=== PATIENT | female | born 1950 | race Caucasian/White ===

== ENCOUNTER → 2017-12-02 | Outpatient (REF) | payer BC, MEDICARE, SELFPAY ==
[2017-12-02 15:57] LABS: BASO # 0.1 10^3/uL (0.0-0.2); EOS # 0.2 10^3/uL (0.0-0.50); EOS % 3.3 % (0.0-3.0); HEMOGLOBIN 14.6 g/dl (12.0-16.0); IMMATURE GRANULOCYTE % 0.3 % (0-0); LYMPH # 1.8 10^3/uL (1.5-4.5); LYMPH % 25.1 % (24.0-44.0); MEAN CORPUSCULAR HEMOGLOBIN 29.1 pg (27.0-33.0); MEAN CORPUSCULAR HGB CONC 32.4 g/dl (32.0-36.5); MEAN CORPUSCULAR VOLUME 89.6 fl (80.0-96.0); MONO # 0.5 10^3/uL (0.0-0.8); NEUTROPHILS # 4.6 10^3/uL (1.8-7.7); NEUTROPHILS % 63.3 % (36.0-66.0); PLATELET COUNT, AUTOMATED 164 10^3/uL (150-450); RED BLOOD COUNT 5.02 10^6/uL (4.00-5.40); RED CELL DISTRIBUTION WIDTH 13.4 % (11.5-14.5); WHITE BLOOD COUNT 7.2 10^3/uL (4.0-10.0)
[2017-12-02 16:17] LABS: TOTAL 25(OH) VITAMIN D 13.5 NG/ML (30.0-100.0)
[2017-12-02 16:18] LABS: ALBUMIN 3.7 GM/DL (3.2-5.2); ALBUMIN/GLOBULIN RATIO 1.03 (1.00-1.93); ALKALINE PHOSPHATASE 160 U/L (45-117); ALT/SGPT 29 U/L (12-78); ANION GAP 7 MEQ/L (8-16); AST/SGOT 17 U/L (7-37); BILIRUBIN,TOTAL 0.5 MG/DL (0.2-1.0); BLOOD UREA NITROGEN 17 MG/DL (7-18); CALCIUM LEVEL 9.8 MG/DL (8.8-10.2); CARBON DIOXIDE LEVEL 28 MEQ/L (21-32); CHLORIDE LEVEL 105 MEQ/L (98-107); CREATININE FOR GFR 0.67 MG/DL (0.55-1.30); GLOMERULAR FILTRATION RATE > 60.0 (>45); GLUCOSE, FASTING 91 MG/DL (70-100); POTASSIUM SERUM 4.4 MEQ/L (3.5-5.1); SODIUM LEVEL 140 MEQ/L (136-145); TOTAL PROTEIN 7.3 GM/DL (6.4-8.2)
[2017-12-02 16:20] LABS: ERYTHROCYTE SEDIMENTATION RATE 31 mm/hr (0-30)
[2017-12-05 00:08] LABS: Lyme Disease IgG/IgM Antibodie <0.91 ISR (0.00-0.90); Lyme Disease IgM Ab Quantitati <0.80 index (0.00-0.79)
== END ==
LOC: M LABDRAW1 11:04
DX: E55.9 Vitamin D deficiency, unspecified (principal); M17.0 Bilateral primary osteoarthritis of knee; M50.322 Other cervical disc degeneration at C5-C6 level; M75.51 Bursitis of right shoulder
CPT/HCPCS: 80053

== ENCOUNTER → 2018-01-05 | Outpatient (CLI) | payer MEDICARE | LOC: M WHC 07:56 | DX: M85.89 Other specified disorders of bone density and structure, multiple sites (principal) | CPT/HCPCS: 77080 ==

== ENCOUNTER → 2019-11-24 | Outpatient (CLI) | payer MEDICARE ==
[2019-11-27 09:11] LABS: D001-IgE D pteronyssinus <0.10 kU/L (Class 0); E001-IgE Cat Epith/Dander < 0.10 kU/L (Class 0); E003-IGE HORSE EPITHELIA/DAND <0.10 kU/L (Class 0); E004-IGE COW DANDER <0.10 kU/L (Class 0); E005-IgE Dog Dander < 0.10 kU/L (Class 0); F002-IgE Milk < 0.10 kU/L (Class 0); F004-IgE Wheat < 0.10 kU/L (Class 0); F013-IgE Peanut < 0.10 kU/L (Class 0); F014-IgE Soybean < 0.10 kU/L (Class 0); F026-IgE Pork < 0.10 kU/L (Class 0); F027-IgE Beef < 0.10 kU/L (Class 0); F245-IgE Egg, Whole < 0.10 kU/L (Class 0); FX02-IgE Food Mix (Sea Foods) Negative (.); G002-IgE Bermuda Grass < 0.10 kU/L (Class 0); G008-IgE Kentucky Bluegrass < 0.10 kU/L (Class 0); M001-IgE Penicillium chrysogen < 0.10 kU/L (Class 0); M002 IgE Cladosporium herbaru < 0.10 kU/L (Class 0); M003 IgE Aspergillus fumigatu < 0.10 kU/L (Class 0); M006-IgE Alternaria alternata < 0.10 kU/L (Class 0); T001-IgE Maple/Box Elder < 0.10 kU/L (Class 0); T003-IgE Common Silver Birch < 0.10 kU/L (Class 0); T006-IgE Cedar, Mountain < 0.10 kU/L (Class 0); T007-IgE Oak, White < 0.10 kU/L (Class 0); T008-IgE Elm, American < 0.10 kU/L (Class 0); T015-IgE Ash, White < 0.10 kU/L (Class 0); T041-IgE Hickory, White < 0.10 kU/L (Class 0); T070-IgE White Mulberry < 0.10 kU/L (Class 0); W001-IgE Ragweed, Short < 0.10 kU/L (Class 0); W009-IgE Plantain, English < 0.10 kU/L (Class 0); W014-IgE Pigweed, Rough < 0.10 kU/L (Class 0); W018-IgE Sheep Sorrel < 0.10 kU/L (Class 0)
== END ==
LOC: M LAB 07:49
PROVIDERS: ATTEND Allergy & Immunology
DX: J30.1 Allergic rhinitis due to pollen (principal); J30.81 Allergic rhinitis due to animal (cat) (dog) hair and dander; J30.89 Other allergic rhinitis

== ENCOUNTER → 2020-03-16 | Outpatient (CLI) | payer MEDICARE ==
[2020-03-16 07:12] LABS: HEMATOCRIT 41.3 % (36.0-47.0); HEMOGLOBIN 13.5 g/dl (12.0-15.5); MEAN CORPUSCULAR HEMOGLOBIN 29.9 pg (27.0-33.0); MEAN CORPUSCULAR HGB CONC 32.7 g/dl (32.0-36.5); MEAN CORPUSCULAR VOLUME 91.6 fl (80.0-96.0); PLATELET COUNT, AUTOMATED 162 10^3/uL (150-450); RED BLOOD COUNT 4.51 10^6/uL (4.00-5.40); WHITE BLOOD COUNT 7.2 10^3/uL (4.0-10.0)
[2020-03-16 07:28] LABS: HEMOGLOBIN A1c 5.7 %
[2020-03-16 07:39] LABS: ALBUMIN 3.2 GM/DL (3.2-5.2); ALT/SGPT 24 U/L (12-78); BILIRUBIN,TOTAL 0.6 MG/DL (0.2-1.0); BLOOD UREA NITROGEN 16 MG/DL (7-18); CALCIUM LEVEL 9.4 MG/DL (8.8-10.2); CARBON DIOXIDE LEVEL 26 MEQ/L (21-32); CHLORIDE LEVEL 108 MEQ/L (98-107); CHOLESTEROL LEVEL 130 MG/DL (<200); CREATININE FOR GFR 0.62 MG/DL (0.55-1.30); GLOMERULAR FILTRATION RATE > 60.0 (>45); GLUCOSE, FASTING 103 MG/DL (70-100); HDL CHOLESTEROL 52 MG/DL (>40); LDL CHOLESTEROL 56 MG/DL (<100); NON-HDL-C 78 MG/DL; POTASSIUM SERUM 4.1 MEQ/L (3.5-5.1); SODIUM LEVEL 143 MEQ/L (136-145); THYROID STIMULATING HORMONE 0.696 uIU/ML (0.358-3.740); TOTAL PROTEIN 6.7 GM/DL (6.4-8.2); TRIGLYCERIDES LEVEL 112 MG/DL (<150)
[2020-03-16 10:10] LABS: TOTAL 25(OH) VITAMIN D 13.4 NG/ML (30.0-100.0)
== END ==
LOC: M LAB 06:25
PROVIDERS: ATTEND Family Medicine
DX: I10 Essential (primary) hypertension (principal); E11.9 Type 2 diabetes mellitus without complications; E03.9 Hypothyroidism, unspecified; Z79.899 Other long term (current) drug therapy

== ENCOUNTER → 2020-10-22 | Outpatient (CLI) | payer MEDICARE ==
[2020-10-22 08:12] LABS: HEMATOCRIT 44.8 % (36.0-47.0); HEMOGLOBIN 14.2 g/dl (12.0-15.5); MEAN CORPUSCULAR HEMOGLOBIN 29.5 pg (27.0-33.0); MEAN CORPUSCULAR HGB CONC 31.7 g/dl (32.0-36.5); MEAN CORPUSCULAR VOLUME 92.9 fl (80.0-96.0); PLATELET COUNT, AUTOMATED 182 10^3/uL (150-450); RED BLOOD COUNT 4.82 10^6/uL (4.00-5.40)
[2020-10-22 08:46] LABS: ALBUMIN 3.4 GM/DL (3.2-5.2); ALT/SGPT 31 U/L (12-78); BILIRUBIN,TOTAL 0.6 MG/DL (0.2-1.0); BLOOD UREA NITROGEN 16 MG/DL (7-18); CALCIUM LEVEL 9.6 MG/DL (8.8-10.2); CARBON DIOXIDE LEVEL 28 MEQ/L (21-32); CHLORIDE LEVEL 107 MEQ/L (98-107); CHOLESTEROL LEVEL 141 MG/DL (<200); CHOLESTEROL RISK RATIO 2.764 (<5); CREATININE FOR GFR 0.51 MG/DL (0.55-1.30); GLOMERULAR FILTRATION RATE > 60.0 (>45); GLUCOSE, FASTING 104 MG/DL (70-100); HDL CHOLESTEROL 51 MG/DL (>40); LDL CHOLESTEROL 72 MG/DL (<100); NON-HDL-C 90 MG/DL; SODIUM LEVEL 140 MEQ/L (136-145); THYROID STIMULATING HORMONE 0.792 uIU/ML (0.358-3.740); TOTAL PROTEIN 6.7 GM/DL (6.4-8.2); TRIGLYCERIDES LEVEL 92 MG/DL (<150)
[2020-10-22 10:40] LABS: HEMOGLOBIN A1c 5.6 %
[2020-10-22 13:41] LABS: TOTAL 25(OH) VITAMIN D 21.9 NG/ML (30.0-100.0)
== END ==
LOC: M LAB 07:27
PROVIDERS: ATTEND Family Medicine
DX: E03.9 Hypothyroidism, unspecified (principal); I10 Essential (primary) hypertension; E11.9 Type 2 diabetes mellitus without complications; R53.83 Other fatigue

== ENCOUNTER → 2020-12-27 | Outpatient (CLI) | payer MEDICARE ==
[2020-12-27 08:09] LABS: HEMOGLOBIN 13.7 g/dl (12.0-15.5); MEAN CORPUSCULAR HEMOGLOBIN 29.5 pg (27.0-33.0); MEAN CORPUSCULAR HGB CONC 31.9 g/dl (32.0-36.5); MEAN CORPUSCULAR VOLUME 92.5 fl (80.0-96.0); PLATELET COUNT, AUTOMATED 174 10^3/uL (150-450); RED BLOOD COUNT 4.65 10^6/uL (4.00-5.40); WHITE BLOOD COUNT 7.6 10^3/uL (4.0-10.0)
[2020-12-27 08:49] LABS: ALBUMIN 3.5 GM/DL (3.2-5.2); ALT/SGPT 30 U/L (12-78); BILIRUBIN,TOTAL 0.5 MG/DL (0.2-1.0); BLOOD UREA NITROGEN 23 MG/DL (7-18); CALCIUM LEVEL 9.8 MG/DL (8.8-10.2); CARBON DIOXIDE LEVEL 28 MEQ/L (21-32); CHLORIDE LEVEL 108 MEQ/L (98-107); CHOLESTEROL LEVEL 138 MG/DL (<200); CHOLESTEROL RISK RATIO 2.603 (<5); CREATININE FOR GFR 0.66 MG/DL (0.55-1.30); GLOMERULAR FILTRATION RATE > 60.0 (>45); GLUCOSE, FASTING 101 MG/DL (70-100); HDL CHOLESTEROL 53 MG/DL (>40); LDL CHOLESTEROL 69 MG/DL (<100); NON-HDL-C 85 MG/DL; POTASSIUM SERUM 4.3 MEQ/L (3.5-5.1); SODIUM LEVEL 141 MEQ/L (136-145); THYROID STIMULATING HORMONE 0.666 uIU/ML (0.358-3.740); TOTAL PROTEIN 6.8 GM/DL (6.4-8.2); TRIGLYCERIDES LEVEL 81 MG/DL (<150)
[2020-12-27 09:09] LABS: TOTAL 25(OH) VITAMIN D 19.5 NG/ML (30.0-100.0)
[2020-12-27 09:17] LABS: HEMOGLOBIN A1c 5.4 %
== END ==
LOC: M LAB 07:15
PROVIDERS: ATTEND Family Medicine
DX: E03.9 Hypothyroidism, unspecified (principal); I10 Essential (primary) hypertension; E11.9 Type 2 diabetes mellitus without complications

== ENCOUNTER → 2021-06-25 | Outpatient (REF) | payer MEDICARE | LOC: M LAB REF 12:32 | PROVIDERS: ATTEND Nurse Practitioner Family | DX: E83.42 Hypomagnesemia (principal) ==

== ENCOUNTER → 2021-08-08 | Outpatient (CLI) | payer MEDICARE ==
[2021-08-08 08:55] LABS: HEMATOCRIT 43.3 % (36.0-47.0); MEAN CORPUSCULAR HEMOGLOBIN 29.9 pg (27.0-33.0); MEAN CORPUSCULAR HGB CONC 32.3 g/dl (32.0-36.5); MEAN CORPUSCULAR VOLUME 92.3 fl (80.0-96.0); PLATELET COUNT, AUTOMATED 181 10^3/uL (150-450); RED BLOOD COUNT 4.69 10^6/uL (4.00-5.40); WHITE BLOOD COUNT 6.2 10^3/uL (4.0-10.0)
[2021-08-08 09:10] LABS: HEMOGLOBIN A1c 5.3 %
[2021-08-08 09:29] LABS: ALBUMIN 3.2 GM/DL (3.2-5.2); ALT/SGPT 24 U/L (12-78); BILIRUBIN,TOTAL 0.6 MG/DL (0.2-1.0); BLOOD UREA NITROGEN 17 MG/DL (7-18); CALCIUM LEVEL 10.1 MG/DL (8.8-10.2); CARBON DIOXIDE LEVEL 28 MEQ/L (21-32); CHLORIDE LEVEL 109 MEQ/L (98-107); CHOLESTEROL LEVEL 148 MG/DL (<200); CHOLESTEROL RISK RATIO 2.642 (<5); CREATININE FOR GFR 0.61 MG/DL (0.55-1.30); GLOMERULAR FILTRATION RATE > 60.0 (>45); GLUCOSE, FASTING 102 MG/DL (70-100); HDL CHOLESTEROL 56 MG/DL (>40); LDL CHOLESTEROL 71 MG/DL (<100); NON-HDL-C 92 MG/DL; POTASSIUM SERUM 4.1 MEQ/L (3.5-5.1); SODIUM LEVEL 141 MEQ/L (136-145); THYROID STIMULATING HORMONE 0.397 uIU/ML (0.358-3.740); TOTAL PROTEIN 6.6 GM/DL (6.4-8.2); TRIGLYCERIDES LEVEL 105 MG/DL (<150)
[2021-08-08 10:38] LABS: TOTAL 25(OH) VITAMIN D 57.4 NG/ML (30.0-100.0)
== END ==
LOC: M LAB 08:04
PROVIDERS: ATTEND Family Medicine
DX: I10 Essential (primary) hypertension (principal); E11.9 Type 2 diabetes mellitus without complications; R53.83 Other fatigue

== ENCOUNTER → 2021-11-28 | Outpatient (CLI) | payer MEDICARE ==
[2021-11-28 08:49] LABS: HEMATOCRIT 44.7 % (36.0-47.0); HEMOGLOBIN 14.4 g/dl (12.0-15.5); MEAN CORPUSCULAR HEMOGLOBIN 29.8 pg (27.0-33.0); MEAN CORPUSCULAR HGB CONC 32.2 g/dl (32.0-36.5); MEAN CORPUSCULAR VOLUME 92.4 fl (80.0-96.0); PLATELET COUNT, AUTOMATED 177 10^3/uL (150-450); RED BLOOD COUNT 4.84 10^6/uL (4.00-5.40); WHITE BLOOD COUNT 6.5 10^3/uL (4.0-10.0)
[2021-11-28 09:29] LABS: ALBUMIN 3.2 GM/DL (3.2-5.2); ALT/SGPT 22 U/L (12-78); BILIRUBIN,TOTAL 0.6 MG/DL (0.2-1.0); BLOOD UREA NITROGEN 17 MG/DL (7-18); CALCIUM LEVEL 9.9 MG/DL (8.8-10.2); CARBON DIOXIDE LEVEL 29 MEQ/L (21-32); CHLORIDE LEVEL 107 MEQ/L (98-107); CHOLESTEROL LEVEL 142 MG/DL (<200); CHOLESTEROL RISK RATIO 2.629 (<5); CREATININE FOR GFR 0.65 MG/DL (0.55-1.30); GLOMERULAR FILTRATION RATE > 60.0 (>45); GLUCOSE, FASTING 105 MG/DL (70-100); HDL CHOLESTEROL 54 MG/DL (>40); LDL CHOLESTEROL 68 MG/DL (<100); NON-HDL-C 88 MG/DL; POTASSIUM SERUM 4.3 MEQ/L (3.5-5.1); SODIUM LEVEL 141 MEQ/L (136-145); THYROID STIMULATING HORMONE 0.488 uIU/ML (0.358-3.740); TOTAL PROTEIN 6.9 GM/DL (6.4-8.2); TRIGLYCERIDES LEVEL 99 MG/DL (<150)
[2021-11-28 10:51] LABS: HEMOGLOBIN A1c 5.3 %
[2021-11-29 10:40] LABS: TOTAL 25(OH) VITAMIN D 41.2 NG/ML (30.0-100.0)
== END ==
LOC: M LAB 08:15
PROVIDERS: ATTEND Family Medicine
DX: D64.9 Anemia, unspecified (principal); R53.83 Other fatigue; E03.9 Hypothyroidism, unspecified

== ENCOUNTER → 2022-03-05 | Outpatient (CLI) | payer MEDICARE ==
[2022-03-05 13:15] LABS: THYROGLOBULIN ANTIBODY 18.4 U/ML (<60.0); THYROID PEROXIDASE ANTIBODY < 28.0 U/ML (<60.0)
== END ==
LOC: M LAB 10:55
PROVIDERS: ATTEND Allergy & Immunology
DX: J30.1 Allergic rhinitis due to pollen (principal); R05.3 Chronic cough

== ENCOUNTER → 2022-07-21 | Outpatient (CLI) | payer MEDICARE ==
[2022-07-21 10:58] LABS: HEMATOCRIT 41.6 % (36.0-47.0); HEMOGLOBIN 13.4 g/dl (12.0-15.5); MEAN CORPUSCULAR HEMOGLOBIN 30.4 pg (27.0-33.0); MEAN CORPUSCULAR HGB CONC 32.2 g/dl (32.0-36.5); MEAN CORPUSCULAR VOLUME 94.3 fl (80.0-96.0); PLATELET COUNT, AUTOMATED 184 10^3/uL (150-450); RED BLOOD COUNT 4.41 10^6/uL (4.00-5.40); WHITE BLOOD COUNT 6.6 10^3/uL (4.0-10.0)
[2022-07-21 11:18] LABS: ERYTHROCYTE SEDIMENTATION RATE 30 mm/hr (0-30)
[2022-07-21 12:18] LABS: ALT/SGPT 21 U/L (12-78); BILIRUBIN,TOTAL 0.4 MG/DL (0.2-1.0); BLOOD UREA NITROGEN 15 MG/DL (7-18); CALCIUM LEVEL 9.6 MG/DL (8.8-10.2); CARBON DIOXIDE LEVEL 28 MEQ/L (21-32); CHLORIDE LEVEL 107 MEQ/L (98-107); CHOLESTEROL LEVEL 124 MG/DL (<200); CHOLESTEROL RISK RATIO 2.254 (<5); CREATININE FOR GFR 0.52 MG/DL (0.55-1.30); GLOMERULAR FILTRATION RATE > 60.0 (>39); GLUCOSE, FASTING 117 MG/DL (70-100); HDL CHOLESTEROL 55 MG/DL (>40); LDL CHOLESTEROL 54 MG/DL (<100); NON-HDL-C 69 MG/DL; POTASSIUM SERUM 4.3 MEQ/L (3.5-5.1); SODIUM LEVEL 140 MEQ/L (136-145); TRIGLYCERIDES LEVEL 73 MG/DL (<150)
[2022-07-21 12:19] LABS: ALBUMIN 3.2 GM/DL (3.2-5.2); THYROID STIMULATING HORMONE 0.332 uIU/ML (0.358-3.740); TOTAL PROTEIN 6.5 GM/DL (6.4-8.2)
[2022-07-21 12:35] LABS: HEMOGLOBIN A1c 5.7 %
[2022-07-21 12:47] LABS: TOTAL 25(OH) VITAMIN D 36.9 NG/ML (30.0-100.0)
== END ==
LOC: M LAB 10:05
PROVIDERS: ATTEND Family Medicine
DX: I10 Essential (primary) hypertension (principal); E11.9 Type 2 diabetes mellitus without complications; E03.9 Hypothyroidism, unspecified

== ENCOUNTER → 2023-01-14 | Outpatient (CLI) | payer MEDICARE ==
[2023-01-14 08:11] LABS: HEMATOCRIT 41.7 % (36.0-47.0); HEMOGLOBIN 13.3 g/dl (12.0-15.5); MEAN CORPUSCULAR HEMOGLOBIN 30.2 pg (27.0-33.0); MEAN CORPUSCULAR HGB CONC 31.9 g/dl (32.0-36.5); MEAN CORPUSCULAR VOLUME 94.6 fl (80.0-96.0); PLATELET COUNT, AUTOMATED 182 10^3/uL (150-450); RED BLOOD COUNT 4.41 10^6/uL (4.00-5.40); WHITE BLOOD COUNT 6.7 10^3/uL (4.0-10.0)
[2023-01-14 08:55] LABS: ALBUMIN 3.2 G/DL (3.2-5.2); ALKALINE PHOSPHATASE 130 U/L (46-116); ALT/SGPT 13 U/L (7.0-40); AST/SGOT 14 U/L (<34); BILIRUBIN,TOTAL 0.7 MG/DL (0.3-1.2); BLOOD UREA NITROGEN 19 MG/DL (9-23); CALCIUM LEVEL 9.4 MG/DL (8.3-10.6); CARBON DIOXIDE LEVEL 29 MMOL/L (20-31); CHLORIDE LEVEL 106 MMOL/L (98-107); CHOLESTEROL LEVEL 117 MG/DL (<200); CHOLESTEROL RISK RATIO 2.42 (<5); CREATININE FOR GFR 0.61 MG/DL (0.55-1.30); GLOMERULAR FILTRATION RATE > 60.0 (>39); GLUCOSE, FASTING 109 MG/DL (74-106); HDL CHOLESTEROL 48.2 MG/DL (>40); NON-HDL-C 68.8 MG/DL; POTASSIUM SERUM 4.2 MMOL/L (3.5-5.1); SODIUM LEVEL 138 MMOL/L (136-145); THYROID STIMULATING HORMONE 0.969 uIU/ML (0.55-4.78); TOTAL 25(OH) VITAMIN D 29.4 NG/ML (20.0-100.0); TOTAL PROTEIN 6.1 G/DL (5.7-8.2); TRIGLYCERIDES LEVEL 74 MG/DL (<150)
[2023-01-14 09:30] LABS: HEMOGLOBIN A1c 5.7 % (4.0-6.0)
== END ==
LOC: M LAB 07:28
PROVIDERS: ATTEND Family Medicine
DX: I10 Essential (primary) hypertension (principal); E11.9 Type 2 diabetes mellitus without complications; R53.83 Other fatigue; D64.9 Anemia, unspecified

== ENCOUNTER → 2024-01-06 | Outpatient (CLI) | payer MEDICARE ==
[2024-01-06 10:58] LABS: HEMATOCRIT 43.5 % (36.0-47.0); MEAN CORPUSCULAR HGB CONC 32.2 g/dl (32.0-36.5); MEAN CORPUSCULAR VOLUME 93.1 fl (80.0-96.0); PLATELET COUNT, AUTOMATED 173 10^3/uL (150-450); RED BLOOD COUNT 4.67 10^6/uL (4.00-5.40); WHITE BLOOD COUNT 6.9 10^3/uL (4.0-10.0)
[2024-01-06 11:26] LABS: ALBUMIN 3.3 G/DL (3.2-5.2); ALKALINE PHOSPHATASE 147 U/L (46-116); ALT/SGPT 21 U/L (7.0-40); AST/SGOT 12 U/L (<34); BILIRUBIN,TOTAL 0.6 MG/DL (0.3-1.2); BLOOD UREA NITROGEN 17 MG/DL (9-23); CALCIUM LEVEL 9.3 MG/DL (8.3-10.6); CARBON DIOXIDE LEVEL 29 MMOL/L (20-31); CHLORIDE LEVEL 107 MMOL/L (98-107); CHOLESTEROL LEVEL 125 MG/DL (<200); CHOLESTEROL RISK RATIO 2.95 (<5); CREATININE FOR GFR 0.56 MG/DL (0.55-1.30); GLOMERULAR FILTRATION RATE > 60.0 (>39); GLUCOSE, FASTING 112 MG/DL (74-106); HDL CHOLESTEROL 42.3 MG/DL (>40); LDL CHOLESTEROL 63.5 MG/DL (<100); NON-HDL-C 82.7 MG/DL; POTASSIUM SERUM 4.3 MMOL/L (3.5-5.1); SODIUM LEVEL 140 MMOL/L (136-145); TOTAL PROTEIN 6.5 G/DL (5.7-8.2); TRIGLYCERIDES LEVEL 96 MG/DL (<150)
[2024-01-06 11:29] LABS: THYROID STIMULATING HORMONE 0.642 uIU/ML (0.55-4.78)
[2024-01-06 11:30] LABS: TOTAL 25(OH) VITAMIN D 24.3 NG/ML (20.0-100.0)
[2024-01-06 11:33] LABS: HEMOGLOBIN A1c 5.6 % (4.0-6.0)
== END ==
LOC: M LAB 10:23
PROVIDERS: ATTEND Family Medicine
DX: I10 Essential (primary) hypertension (principal); R53.83 Other fatigue

== ENCOUNTER → 2024-03-16 | Outpatient (CLI) | payer MEDICARE ==
[2024-03-16 14:38] LABS: COMPLEMENT C3 148.4 MG/DL (90.0-170.0)
[2024-03-16 14:39] LABS: COMPLEMENT C4 39.3 MG/DL (12-36); IMMUNOGLOBULIN G 1124 MG/DL (650-1600)
[2024-03-19 21:08] LABS: ALPHA 1 ANTITRYPSIN 160 mg/dL (101-187); D001-IgE D pteronyssinus <0.10 kU/L (Class 0); E001-IgE Cat Epith/Dander < 0.10 kU/L (Class 0); E003-IGE HORSE EPITHELIA/DAND <0.10 kU/L (Class 0); E004-IGE COW DANDER <0.10 kU/L (Class 0); E005-IgE Dog Dander < 0.10 kU/L (Class 0); F002-IgE Milk < 0.10 kU/L (Class 0); F004-IgE Wheat < 0.10 kU/L (Class 0); F013-IgE Peanut < 0.10 kU/L (Class 0); F014-IgE Soybean < 0.10 kU/L (Class 0); F026-IgE Pork < 0.10 kU/L (Class 0); F027-IgE Beef < 0.10 kU/L (Class 0); F245-IgE Egg, Whole < 0.10 kU/L (Class 0); G002-IgE Bermuda Grass < 0.10 kU/L (Class 0); M001-IgE Penicillium chrysogen < 0.10 kU/L (Class 0); M002 IgE Cladosporium herbaru < 0.10 kU/L (Class 0); M003 IgE Aspergillus fumigatu < 0.10 kU/L (Class 0); M006-IgE Alternaria alternata < 0.10 kU/L (Class 0); T001-IgE Maple/Box Elder < 0.10 kU/L (Class 0); T003-IgE Common Silver Birch < 0.10 kU/L (Class 0); T006-IgE Cedar, Mountain < 0.10 kU/L (Class 0); T007-IgE Oak, White < 0.10 kU/L (Class 0); T008-IgE Elm, American < 0.10 kU/L (Class 0); T015-IgE Ash, White < 0.10 kU/L (Class 0); T070-IgE White Mulberry < 0.10 kU/L (Class 0); W001-IgE Ragweed, Short < 0.10 kU/L (Class 0); W018-IgE Sheep Sorrel < 0.10 kU/L (Class 0)
== END ==
LOC: M LAB 10:38
PROVIDERS: ATTEND Allergy & Immunology
DX: J30.1 Allergic rhinitis due to pollen (principal); J32.0 Chronic maxillary sinusitis; R05.3 Chronic cough

== ENCOUNTER → 2024-05-12 | Outpatient (CLI) | payer MEDICARE | LOC: M WHC 12:00 | PROVIDERS: ATTEND Nurse Practitioner Family | DX: D44.0 Neoplasm of uncertain behavior of thyroid gland (principal) ==

== ENCOUNTER → 2024-09-06 | Outpatient (CLI) | payer MEDICARE ==
[2024-09-06 07:57] LABS: HEMATOCRIT 40.3 % (36.0-47.0); HEMOGLOBIN 13.1 g/dl (12.0-15.5); MEAN CORPUSCULAR HGB CONC 32.5 g/dl (32.0-36.5); MEAN CORPUSCULAR VOLUME 92.4 fl (80.0-96.0); PLATELET COUNT, AUTOMATED 175 10^3/uL (150-450); RED BLOOD COUNT 4.36 10^6/uL (4.00-5.40); WHITE BLOOD COUNT 6.8 10^3/uL (4.0-10.0)
[2024-09-06 08:19] LABS: HEMOGLOBIN A1c 5.5 % (4.0-6.0)
[2024-09-06 08:23] LABS: ALBUMIN 3.1 G/DL (3.2-5.2); ALKALINE PHOSPHATASE 117 U/L (35-104); ALT/SGPT 15 U/L (7.0-40); AST/SGOT 8 U/L (<34); BILIRUBIN,TOTAL 0.6 MG/DL (0.3-1.2); BLOOD UREA NITROGEN 18 MG/DL (9-23); CALCIUM LEVEL 10.3 MG/DL (8.3-10.6); CARBON DIOXIDE LEVEL 28 MMOL/L (20-31); CHLORIDE LEVEL 107 MMOL/L (98-107); CHOLESTEROL LEVEL 128 MG/DL (<200); CHOLESTEROL RISK RATIO 3.06 (<5); CREATININE FOR GFR 0.59 MG/DL (0.55-1.30); GLOMERULAR FILTRATION RATE > 60.0 (>39); GLUCOSE, FASTING 122 MG/DL (74-106); HDL CHOLESTEROL 41.7 MG/DL (>40); LDL CHOLESTEROL 66.1 MG/DL (<100); NON-HDL-C 86.3 MG/DL; POTASSIUM SERUM 4.2 MMOL/L (3.5-5.1); SODIUM LEVEL 139 MMOL/L (136-145); TOTAL PROTEIN 6.7 G/DL (5.7-8.2); TRIGLYCERIDES LEVEL 101 MG/DL (<150)
[2024-09-06 08:26] LABS: TOTAL 25(OH) VITAMIN D 48.3 NG/ML (20.0-100.0)
== END ==
LOC: M LAB 07:26
PROVIDERS: ATTEND Family Medicine
DX: E11.9 Type 2 diabetes mellitus without complications (principal); R53.83 Other fatigue; E03.9 Hypothyroidism, unspecified

== ENCOUNTER → 2025-03-09 | Outpatient (CLI) | payer MEDICARE ==
[2025-03-09 10:43] LABS: HEMATOCRIT 41.9 % (36.0-47.0); HEMOGLOBIN 13.4 g/dl (12.0-15.5); MEAN CORPUSCULAR HEMOGLOBIN 29.3 pg (27.0-33.0); MEAN CORPUSCULAR VOLUME 91.7 fl (80.0-96.0); PLATELET COUNT, AUTOMATED 205 10^3/uL (150-450); RED BLOOD COUNT 4.57 10^6/uL (4.00-5.40)
[2025-03-09 11:17] LABS: ALBUMIN 3.3 G/DL (3.2-5.2); ALKALINE PHOSPHATASE 118 U/L (35-104); ALT/SGPT 18 U/L (7.0-40); AST/SGOT 15 U/L (<34); BILIRUBIN,TOTAL 0.5 MG/DL (0.3-1.2); BLOOD UREA NITROGEN 19 MG/DL (9-23); CALCIUM LEVEL 9.9 MG/DL (8.3-10.6); CARBON DIOXIDE LEVEL 31 MMOL/L (20-31); CHLORIDE LEVEL 106 MMOL/L (98-107); CHOLESTEROL LEVEL 137 MG/DL (<200); CHOLESTEROL RISK RATIO 2.76 (<5); CREATININE FOR GFR 0.63 MG/DL (0.55-1.30); GLOMERULAR FILTRATION RATE > 90.0 (>39); GLUCOSE, FASTING 105 MG/DL (74-106); HDL CHOLESTEROL 49.5 MG/DL (>40); LDL CHOLESTEROL 73.1 MG/DL (<100); NON-HDL-C 87.5 MG/DL; POTASSIUM SERUM 4.1 MMOL/L (3.5-5.1); SODIUM LEVEL 145 MMOL/L (136-145); THYROID STIMULATING HORMONE 0.404 uIU/ML (0.55-4.78); TRIGLYCERIDES LEVEL 72 MG/DL (<150)
[2025-03-09 11:19] LABS: HEMOGLOBIN A1c 5.3 % (4.0-6.0)
== END ==
LOC: M LAB 09:59
PROVIDERS: ATTEND Family Medicine
DX: I10 Essential (primary) hypertension (principal); E11.9 Type 2 diabetes mellitus without complications; R53.83 Other fatigue; E03.9 Hypothyroidism, unspecified

== ENCOUNTER 2025-05-22 08:05 | Outpatient (RCR) | payer MEDICARE ==
[2025-06-02] MEDS ORDERED: CINA30TA5 (08:06)
[2025-06-02] MEDS ORDERED: ERGO500029 (08:06)
[2025-06-02] MEDS ORDERED: NYAM10003 (08:06)
[2025-06-02] MEDS ORDERED: CEFT1INJ5 (08:06)
[2025-06-02] MEDS ORDERED: ALBU8.5H (08:06)
[2025-06-02] MEDS ORDERED: EPIN0.3I11 (08:06)
[2025-06-02] MEDS ORDERED: CEPH500C (08:06)
[2025-06-02] MEDS ORDERED: FURO20TA2 (08:06)
[2025-06-02] MEDS ORDERED: MONT10TA97 (08:06)
[2025-06-02] MEDS ORDERED: LISI5TAB11 (08:06)
[2025-06-02] MEDS ORDERED: CEFT1INJ5 IM (09:39)
== END 2025-06-01 ==
LOC: M PT 08:05
PROVIDERS: ATTEND Nurse Practitioner Family
DX: I89.0 Lymphedema, not elsewhere classified (principal)

== ENCOUNTER 2025-06-02 07:39 | Emergency (ER) | payer MEDICARE ==
[~2025-06-02] VITALS: Ht 167.6 cm; Wt 95.0 kg
[2025-06-02 07:44] VITALS: TEMP 96.5
[2025-06-02] MEDS ORDERED: CEFT1INJ5 (08:06)
[2025-06-02] MEDS ORDERED: ALBU8.5H (08:06)
[2025-06-02] MEDS ORDERED: NYAM10003 (08:06)
[2025-06-02] MEDS ORDERED: FURO20TA2 (08:06)
[2025-06-02] MEDS ORDERED: CINA30TA5 (08:06)
[2025-06-02] MEDS ORDERED: EPIN0.3I11 (08:06)
[2025-06-02] MEDS ORDERED: MONT10TA97 (08:06)
[2025-06-02] MEDS ORDERED: LISI5TAB11 (08:06)
[2025-06-02] MEDS ORDERED: ERGO500029 (08:06)
[2025-06-02] MEDS ORDERED: CEPH500C (08:06)
[2025-06-02 09:32] VITALS: BP 123/70; O2SAT 100
[2025-06-02] MEDS ORDERED: CEFT1INJ5 IM (09:39)
[2025-06-02] MEDS: LIDOCAINE 1% SDV 5 ML VIAL DILUENT ONE (09:55)
== END 2025-06-02 10:19 | disposition home or self-care (01) ==
LOC: M ED 07:39
DX: L03.115 Cellulitis of right lower limb (principal); E11.9 Type 2 diabetes mellitus without complications; I10 Essential (primary) hypertension; H40.9 Unspecified glaucoma; Z88.1 Allergy status to other antibiotic agents
CPT/HCPCS: 99283; J0696

== ENCOUNTER → 2025-06-03 | Outpatient (CLI) | payer MEDICARE ==
[~2025-06-03] MED LIST: ALBU8.5H; CEFT1INJ5; CEFT1INJ5 IM; CEPH500C; CINA30TA5; EPIN0.3I11; ERGO500029; FURO20TA2; LISI5TAB11; MONT10TA97; NYAM10003
[2025-06-03 09:58] VITALS: BP 129/60; O2SAT 97
[2025-06-03] MEDS: LIDOCAINE 1% SDV 5 ML VIAL DILUENT ONE (10:26)
== END ==
LOC: M OPCLIPCU 09:33
PROVIDERS: ATTEND Student in an Organized Health Care Education/Training Program
DX: L03.90 Cellulitis, unspecified (principal); Z88.1 Allergy status to other antibiotic agents
CPT/HCPCS: 96372; J0696

== ENCOUNTER 2025-06-04 12:33 | Outpatient (CLI) | payer MEDICARE ==
[2025-06-04 12:46] VITALS: BP 144/80; TEMP 97.9; O2SAT 99
[2025-06-04] MEDS: LIDOCAINE 1% SDV 5 ML VIAL DILUENT ONE (12:50)
== END 2025-06-04 12:57 | disposition home or self-care (01) ==
LOC: M OPCLI4PR 12:33 → M MS4PR 12:34 → M OPCLI4PR 12:57
PROVIDERS: ATTEND Student in an Organized Health Care Education/Training Program
DX: L03.90 Cellulitis, unspecified (principal); Z88.1 Allergy status to other antibiotic agents
CPT/HCPCS: 96372; J0696

== ENCOUNTER 2025-06-05 10:32 | Outpatient (CLI) | payer MEDICARE ==
[~2025-06-05] VITALS: Ht 172.7 cm; Wt 100.5 kg
[2025-06-05 10:55] VITALS: BP 124/77; O2SAT 99
== END 2025-06-05 11:05 | disposition home or self-care (01) ==
LOC: M INFU 10:32
PROVIDERS: ATTEND Student in an Organized Health Care Education/Training Program
DX: L03.90 Cellulitis, unspecified (principal); Z88.1 Allergy status to other antibiotic agents
CPT/HCPCS: 96372; J0696